=== PATIENT | female | born 1965 | race Caucasian/White ===

== ENCOUNTER 2019-03-01 10:34 | Day surgery (SDC) | payer BC ==
[~2019-03-01 10:34] MED LIST: ACETAMINOPHEN 1,000 MG/100 ML BTL IVPB ONE; CEFAZOLIN 2 Gram 2 GM/50 ML BAG IVPB ONE
[2019-03-01] MEDS ORDERED: KETOROLAC 30 MG/ML VIAL IVP ONE (10:35)
[2019-03-01] MEDS ORDERED: PROPOFOL 10 MG/ML VIAL IV ONE (10:35)
[2019-03-01] MEDS ORDERED: FENTANYL PF 100MCG/2ML VIAL IV ONE (10:35)
[2019-03-01] MEDS ORDERED: ENOXAPARIN 40 MG/0.4 ML SYR SQ ONE (10:35)
[2019-03-01] MEDS ORDERED: LIDOCAINE 2% MDV (20MG/ML) 20ML VIAL IV ONE (10:35)
[2019-03-01] MEDS ORDERED: MIDAZOLAM HCL 2MG/2ML VIAL IV ONE (10:35)
[2019-03-01] MEDS ORDERED: SEVOFLURANE 250 ML INH ONE (10:35)
[2019-03-01] MEDS ORDERED: ONDANSETRON HCL IV 4 MG/2 ML VIAL IVP ONE (10:35)
[2019-03-01] MEDS ORDERED: RINGERS SOLUTION,LACTATED 1,000 ML IV ONE ×2 (11:15→12:55)
[2019-03-01] MEDS ORDERED: METHYLPREDNISOLONE 40MG/VIAL IU ONE (12:36)
[2019-03-01] MEDS ORDERED: BUPIVACAINE 0.5% W/EPI MPF 30 ML VIAL SQ ONE (12:36)
[2019-03-01] MEDS ORDERED: MORPHINE SULFATE 10MG/1ML **1ML VIAL IU ONE (12:36)
--- NOTE | 2019-03-03 08:10 | Operative Note ---
DATE OF SURGERY: 03/01/2019 PREOPERATIVE DIAGNOSIS: Internal derangement of the left knee. POSTOPERATIVE DIAGNOSES: 1. Modest synovitis. 2. Chondral loose bodies. 3. Grade 3 chondromalacia of patella. 4. Fiber cartilage in the notch. 5. Grade 3 chondromalacia of medial femoral condyle. 6. Small flap tear involving the anterior horn of the lateral meniscus. OPERATION: 1. Left knee arthroscopy with partial lateral meniscectomy. 2. Left knee arthroscopy with removal of chondral loose body. 3. Left knee arthroscopy with chondroplasty of the medial and patellofemoral compartments. STAFF SURGEON: Solis Llanes MD ANESTHESIA: General. PREPARATION: Chloraprep. INDIVIDUAL CONSIDERATIONS: None. PROCEDURE: The patient was taken to the operating room and placed supine on the operating room table. The patient had a successful induction with general anesthetic. The left lower extremity was prepped and draped in the usual fashion. The patient had a superolateral inflow cannula placed. Skin was infiltrated with 0.5% Marcaine with epinephrine prior. A large clear effusion was drained. The knee was inflated with normal saline. An inferomedial and an inferolateral portal were made in a similar fashion. The arthroscope was then introduced through the inferolateral portal up into the pouch. Patellofemoral compartment showed moderate synovitis in the pouch which was debrided with a shaver. Grade 3 with unstable cartilage was seen underneath the patella. This was smoothed with a shaver. There was fiber cartilage in the notch. There was floating debris in both gutters, and there was I would say 1.5 x 0.5 cm cartilaginous loose body in the medial compartment which was debrided out with a shaver. The meniscus looked good. Grade 3 changes throughout the medial femoral condyle, which was smoothed. In the notch, the cruciates were normal. There was a small flap tear involving the anterior and medial horn of the lateral meniscus, which was debrided out with a shaver. The remainder of the compartment was normal. The knee was then irrigated out with saline to remove loose floating debris. Portals were closed with quinton, and 10 mL of 0.5% Marcaine with epinephrine along with 4 mg of morphine and 40 mg of Depo-Medrol were injected into the knee. A sterile bulky compressive dressing was applied. The patient tolerated the procedure well. Needle and sponge counts were correct. Estimated blood loss was minimal. She was taken back to recovery in good condition. There were no complications. ADAM
== END 2019-03-01 13:32 | disposition home or self-care (01) ==
LOC: SUR 10:34
PROVIDERS: ATTEND Orthopaedic Surgery
DX: S83.282A Other tear of lateral meniscus, current injury, left knee, initial encounter (principal); M94.262 Chondromalacia, left knee; M23.42 Loose body in knee, left knee; M65.9 Synovitis and tenosynovitis, unspecified; I10 Essential (primary) hypertension; E78.00 Pure hypercholesterolemia, unspecified; K21.9 Gastro-esophageal reflux disease without esophagitis; E03.9 Hypothyroidism, unspecified; E66.9 Obesity, unspecified; G47.33 Obstructive sleep apnea (adult) (pediatric)
CPT/HCPCS: 29881; 01400; 81025; J1885; J2405; J3010; J0690; J2270; J1030; J1650; J7120